=== PATIENT | female | born 1965 | race American Indian/Alaskan Native ===

== ENCOUNTER 2016-10-12 10:53 | Outpatient (CLI) | payer OTHER ==
--- NOTE | 2016-10-12 12:21 | Mammography Report ---
BILATERAL MAMMOGRAM with CAD: HISTORY: Cancer screening. FINDINGS: The breast tissue is heterogeneously dense, which could obscure detection of small masses (approximately 50%-75% glandular). No mass, distortion, suspicious calcification, or skin change is seen. IMPRESSION: Negative mammogram. There is no mammographic evidence of malignancy. RECOMMENDATION: Follow-up per ACS guidelines. BI-RADS CATEGORY: 1 = Negative ACR BI-RADS MAMMOGRAPHIC CODES: 0 = Needs additional imaging evaluation; 1 = Negative; 2 = Benign; 3 = Probably benign; 4 = Suspicious; 5 = Malignant; 6 = Known biopsy-proven malignancy COMMENT: 1. Dense breast tissue, i.e., adenosis, fibrocystic changes, etc., may obscure an underlying neoplasm. 2. Approximately 10% of cancers are not detected with mammography. 3. A negative mammography report should not delay biopsy if a clinically suspicious mass is present. COMMENT: Patient follow-up letters are generated in [employer].
== END 2016-10-12 10:54 | disposition home or self-care (01) ==
LOC: MAMMO 10:53
PROVIDERS: ATTEND Family Medicine
DX: Z12.31 Encounter for screening mammogram for malignant neoplasm of breast (principal)
CPT/HCPCS: 77067; G0202

== ENCOUNTER 2017-02-16 06:48 | Emergency (ER) | payer OTHER ==
[2017-02-16] MEDS ORDERED: DUONEB 0.5 MG-3 MG/3 ML SOLN IH ONE ×2 (07:12→07:13)
[2017-02-16 07:25] LABS: Basophils % (Auto) 0.5 % (0.0-1.8); Eosinophils % (Auto) 6.6 % (0.0-4.3); Hematocrit 44.6 % (30.3-42.9); Hemoglobin 14.5 gm/dl (10.1-14.3); Mean Corpuscular HGB Conc 33 % (30-34); Mean Corpuscular Hemoglobin 29 pg (28-32); Mean Corpuscular Volume 89 fl (79-97); Platelet Count 224 K/mm3 (140-440); Red Cell Distribution Width 13.2 % (13.2-15.2); White Blood Count 11.3 K/mm3 (4.5-11.0)
[2017-02-16 07:41] LABS: Anion Gap 15 mmol/L; BUN/Creatinine Ratio 13.33; Blood Urea Nitrogen 8 mg/dL (7-17); Calcium 8.9 mg/dL (8.4-10.2); Carbon Dioxide 27 mmol/L (22-30); Chloride 106.6 mmol/L (98-107); Glucose 97 mg/dL (65-100); Potassium 3.4 mmol/L (3.6-5.0); Sodium 145 mmol/L (137-145)
--- NOTE | 2017-02-16 08:00 | XRay Report ---
ROUTINE CHEST, TWO VIEWS: HISTORY: Shortness of breath. The trachea, heart, mediastinal contour, lung amor and bony thorax are unremarkable. No significant change since 06/29/16. IMPRESSION: Unremarkable chest x-ray.
[2017-02-16 08:21] VITALS: BP 143/74
[2017-02-16] MEDS ORDERED: PROVENTIL IH ONE (09:00)
--- NOTE | 2017-02-16 09:05 | Emergency Department Report ---
ED Shortness of Breath HPI - General Chief Complaint: Dyspnea/Respdistress Stated Complaint: MORGAN Time Seen by Provider: 02/16/17 08:46 Source: patient Mode of arrival: Ambulatory Limitations: No Limitations - History of Present Illness Initial Comments: 51-year-old female presents to the emergency department complaining of difficulty breathing. Patient states for the past one week she has been having difficulty breathing. She reports cough initially productive of chunky, white sputum. The sputum has changed to yellow/green/brown in color. She states she has been using her home nebulizer treatments without relief. She denies chest pain. She also denies fever. There are no other complaints. MD Complaint: shortness of breath, cough -: Gradual, week(s) (1) Pain Scale: 0 Consistency: constant Improves With: nothing Worsens With: nothing Known History Of: COPD Associated Symptoms: cough, sputum production - Related Data Previous Rx's Medication Instructions Recorded Last Taken Type Albuterol Sulfate [Ventolin HFA] 2 puff IH Q4H PRN #1 hfa.aer.ad 07/04/15 Rx Fluticasone [Flonase] 2 spray NS QDAY #1 bottle 07/04/15 08/08/15 Rx Loratadine [Claritin] 10 mg PO DAILY #30 tablet 07/04/15 08/14/15 Rx Colchicine [Colcrys] 0.6 mg PO BID PRN #20 tab 08/15/15 Unknown Rx ALBUTEROL Inhaler [ProAir HFA 2 puff IH QID PRN #2 inhalation 10/05/15 Unknown Rx Inhaler] Albuterol *Only Ed* [Proventil 2.5 mg IH Q4H PRN #1 box 10/05/15 Unknown Rx 0.5% NEBS] Budesonide [Pulmicort Respules] 0.25 mg IH Q12HR #1 box 10/05/15 Unknown Rx Ipratropium/Albuterol Sulfate 1 ampul IH Q4HR #1 box 10/05/15 Unknown Rx [Duoneb 0.5 mg-3 mg/3 ml Soln] Nebulizer/Compressor [Devilbiss 1 each MC DAILY #1 each 10/05/15 Unknown Rx Pulmoneb Lt Comp-Neb] predniSONE [Deltasone] 3 tab PO QDAY #15 tablet 02/16/17 Unknown Rx Allergies Allergy/AdvReac Type Severity Reaction Status Date / Time No Known Allergies Allergy Verified 06/29/16 12:05 ED Review of Systems ROS: Stated complaint: MORGAN Other details as noted in HPI Comment: All other systems reviewed and negative Respiratory: cough, shortness of breath, wheezing ED Past Medical Hx - Past Medical History Previous Medical History?: Yes Hx Congestive Heart Failure: No Hx Diabetes: No Hx Asthma: No Hx COPD: Yes Hx HIV: No Additional medical history: GOUT - Surgical History Past Surgical History?: Yes Additional Surgical History: breast biopsy, HYSTERECTOMY, Lt FOOT SURGERY X 2 - Family History Family history: no significant - Social History Smoking Status: Current Some Day Smoker Substance Use Type: None - Medications Home Medications: Home Medications Medication Instructions Recorded Confirmed Last Taken Type Albuterol Sulfate [Ventolin HFA] 2 puff IH Q4H PRN #1 hfa.aer.ad 07/04/1508/14/15 Rx Fluticasone [Flonase] 2 spray NS QDAY #1 bottle 07/04/15 10/04/15 08/08/15 Rx Loratadine [Claritin] 10 mg PO DAILY #30 tablet 07/04/15 10/04/15 08/14/15 Rx Colchicine [Colcrys] 0.6 mg PO BID PRN #20 tab 08/15/15 10/04/15 Unknown Rx ALBUTEROL Inhaler [ProAir HFA 2 puff IH QID PRN #2 inhalation 10/05/15 Unknown Rx Inhaler] Albuterol *Only Ed* [Proventil 2.5 mg IH Q4H PRN #1 box 10/05/15 Unknown Rx 0.5% NEBS] Budesonide [Pulmicort Respules] 0.25 mg IH Q12HR #1 box 10/05/15 Unknown Rx Ipratropium/Albuterol Sulfate 1 ampul IH Q4HR #1 box 10/05/15 Unknown Rx [Duoneb 0.5 mg-3 mg/3 ml Soln] Nebulizer/Compressor [Devilbiss 1 each MC DAILY #1 each 10/05/15 Unknown Rx Pulmoneb Lt Comp-Neb] predniSONE [Deltasone] 3 tab PO QDAY #15 tablet 02/16/17 Unknown Rx ED Physical Exam - General Limitations: No Limitations General appearance: alert, in no apparent distress - Head Head exam: Present: atraumatic, normocephalic - Eye Eye exam: Present: normal appearance, PERRL, EOMI - ENT ENT exam: Present: normal exam, normal orophraynx, mucous membranes moist - Neck Neck exam: Present: normal inspection, full ROM. Absent: tenderness - Respiratory Respiratory exam: Present: wheezes (bilateral posterior diffuse). Absent: respiratory distress - Cardiovascular Cardiovascular Exam: Present: regular rate, normal rhythm, normal heart sounds - GI/Abdominal GI/Abdominal exam: Present: soft, normal bowel sounds. Absent: distended, tenderness - Extremities Exam Extremities exam: Present: normal inspection, full ROM. Absent: tenderness - Back Exam Back exam: Present: normal inspection, full ROM. Absent: tenderness - Neurological Exam Neurological exam: Present: alert, oriented X3. Absent: motor sensory deficit - Skin Skin exam: Present: warm, dry, intact ED Course Vital Signs 02/16/17 02/16/17 02/16/17 06:48 07:17 08:09 Temperature 98.0 F Pulse Rate 78 Pulse Rate [ 80 Posterior Bilateral Throughout] Respiratory 22 21 Rate Respiratory 22 Rate [Posterior Bilateral Throughout] Blood Pressure Blood Pressure 157/88 [Right] O2 Sat by Pulse 99 Oximetry 02/16/17 02/16/17 02/16/17 08:10 08:11 08:12 Temperature Pulse Rate 73 73 Pulse Rate [ Posterior Bilateral Throughout] Respiratory 13 12 Rate Respiratory Rate [Posterior Bilateral Throughout] Blood Pressure 154/75 137/69 143/74 Blood Pressure [Right] O2 Sat by Pulse 97 99 97 Oximetry 02/16/17 02/16/17 02/16/17 08:14 08:16 08:18 Temperature Pulse Rate Pulse Rate [ Posterior Bilateral Throughout] Respiratory Rate Respiratory Rate [Posterior Bilateral Throughout] Blood Pressure 143/74 143/74 143/74 Blood Pressure [Right] O2 Sat by Pulse 98 97 98 Oximetry 02/16/17 02/16/17 02/16/17 08:20 08:22 08:24 Temperature Pulse Rate Pulse Rate [ Posterior Bilateral Throughout] Respiratory 19 Rate Respiratory Rate [Posterior Bilateral Throughout] Blood Pressure 143/74 143/74 143/74 Blood Pressure [Right] O2 Sat by Pulse 99 98 97 Oximetry 02/16/17 02/16/17 02/16/17 08:26 08:28 08:30 Temperature Pulse Rate Pulse Rate [ Posterior Bilateral Throughout] Respiratory Rate Respiratory Rate [Posterior Bilateral Throughout] Blood Pressure 143/74 143/74 143/74 Blood Pressure [Right] O2 Sat by Pulse 100 99 100 Oximetry 02/16/17 02/16/17 02/16/17 08:32 08:34 08:36 Temperature Pulse Rate Pulse Rate [ Posterior Bilateral Throughout] Respiratory Rate Respiratory Rate [Posterior Bilateral Throughout] Blood Pressure 143/74 143/74 143/74 Blood Pressure [Right] O2 Sat by Pulse 97 98 100 Oximetry 02/16/17 02/16/17 02/16/17 08:38 08:40 08:42 Temperature Pulse Rate Pulse Rate [ Posterior Bilateral Throughout] Respiratory Rate Respiratory Rate [Posterior Bilateral Throughout] Blood Pressure 143/74 143/74 143/74 Blood Pressure [Right] O2 Sat by Pulse 100 100 100 Oximetry 02/16/17 02/16/17 02/16/17 08:44 08:46 08:48 Temperature Pulse Rate Pulse Rate [ Posterior Bilateral Throughout] Respiratory Rate Respiratory Rate [Posterior Bilateral Throughout] Blood Pressure 143/74 143/74 143/74 Blood Pressure [Right] O2 Sat by Pulse 100 100 100 Oximetry 02/16/17 02/16/17 02/16/17 08:50 08:52 08:54 Temperature Pulse Rate Pulse Rate [ Posterior Bilateral Throughout] Respiratory Rate Respiratory Rate [Posterior Bilateral Throughout] Blood Pressure 143/74 143/74 143/74 Blood Pressure [Right] O2 Sat by Pulse 100 100 98 Oximetry 02/16/17 02/16/17 02/16/17 08:56 08:58 09:00 Temperature Pulse Rate Pulse Rate [ Posterior Bilateral Throughout] Respiratory Rate Respiratory Rate [Posterior Bilateral Throughout] Blood Pressure 143/74 143/74 143/74 Blood Pressure [Right] O2 Sat by Pulse 99 98 98 Oximetry 02/16/17 02/16/17 02/16/17 09:02 09:04 09:06 Temperature Pulse Rate Pulse Rate [ Posterior Bilateral Throughout] Respiratory Rate Respiratory Rate [Posterior Bilateral Throughout] Blood Pressure 143/74 143/74 143/74 Blood Pressure [Right] O2 Sat by Pulse 99 98 100 Oximetry 02/16/17 02/16/17 02/16/17 09:08 09:10 09:12 Temperature Pulse Rate Pulse Rate [ 72 Posterior Bilateral Throughout] Respiratory Rate Respiratory 22 Rate [Posterior Bilateral Throughout] Blood Pressure 143/74 143/74 143/74 Blood Pressure [Right] O2 Sat by Pulse 100 100 100 Oximetry 02/16/17 02/16/17 02/16/17 09:14 09:16 09:18 Temperature Pulse Rate Pulse Rate [ Posterior Bilateral Throughout] Respiratory Rate Respiratory Rate [Posterior Bilateral Throughout] Blood Pressure 143/74 143/74 143/74 Blood Pressure [Right] O2 Sat by Pulse 100 99 100 Oximetry 02/16/17 02/16/17 02/16/17 09:20 09:22 09:24 Temperature Pulse Rate Pulse Rate [ Posterior Bilateral Throughout] Respiratory Rate Respiratory Rate [Posterior Bilateral Throughout] Blood Pressure 143/74 143/74 143/74 Blood Pressure [Right] O2 Sat by Pulse 100 100 100 Oximetry 02/16/17 02/16/17 02/16/17 09:26 09:28 09:54 Temperature Pulse Rate Pulse Rate [ 76 Posterior Bilateral Throughout] Respiratory Rate Respiratory 20 Rate [Posterior Bilateral Throughout] Blood Pressure 143/74 143/74 Blood Pressure [Right] O2 Sat by Pulse 100 100 Oximetry ED Medical Decision Making - Lab Data Result diagrams: 02/16/17 07:12 02/16/17 07:09 - EKG Data -: EKG Interpreted by Nd EKG shows normal: sinus rhythm, axis, intervals, QRS complexes, ST-T waves Rate: normal - EKG Data When compared to previous EKG there are: previous EKG unavailable Interpretation: normal EKG - Radiology Data Radiology results: report reviewed Chest x-ray shows no acute cardiopulmonary abnormality. - Medical Decision Making Lab and imaging results reviewed and discussed with the patient. Patient reports feeling much better following medication. On reexamination, her lungs are clear to auscultation. Patient will be discharged home at this time. - Differential Diagnosis COPD exacerbation, pneumonia Critical care attestation.: If time is entered above; I have spent that time in minutes in the direct care of this critically ill patient, excluding procedure time. ED Disposition Clinical Impression: COPD with acute exacerbation Disposition: DISCHARGED TO HOME OR SELFCARE Is pt being admited?: No Condition: Stable Instructions: Chronic Obstructive Pulmonary Disease (ED) Prescriptions: predniSONE [Deltasone] 3 tab PO QDAY #15 tablet Referrals: PRIMARY CARE, [Primary Care Provider] - 3-5 Days Time of Disposition: 10:27
[2017-02-16] MEDS ORDERED: DELTASONE PO ONE (09:57)
== END 2017-02-16 10:33 | disposition home or self-care (01) ==
LOC: ED 06:48
DX: J44.1 Chronic obstructive pulmonary disease with (acute) exacerbation (principal); F17.200 Nicotine dependence, unspecified, uncomplicated; Z98.890 Other specified postprocedural states
CPT/HCPCS: 36415; 71020; 80048; 82140; 82805; 84484; 84703; 85025; 87040; 93005; 93010; 94640; 99284; J2930; J7512

== ENCOUNTER 2017-12-11 16:19 | Emergency (ER) | payer OTHER ==
[2017-12-11 16:30] VITALS: BP 135/52
--- NOTE | 2017-12-11 17:49 | Emergency Department Report ---
ED Psych HPI - General Chief Complaint: Anxiety Stated Complaint: MORGAN Time Seen by Provider: 12/11/17 17:31 Source: patient Mode of arrival: Ambulatory - History of Present Illness Initial Comments: Ms. Lockhart is a 52-year-old female with history of COPD and tobacco abuse. For the past 2 years she has had intermittent episodes of panic anxiety and depression. She states that her moods have been labile. Last night she felt panicked. She then began to cry. She had associated shortness of breath. Triggers tend to be life stressors. Spring time is the anniversary of her mother's test 2 years ago. Last time she had a similar attack her son was in during a court trauma. Recently she's had depression crying episodes. She's felt anxious. She states that using her prednisone helps her. She denies suicidal ideation. She stated that last summer she did have one time in which she thought she would harm to herself. She has not seen a therapist. She currently denies SI or HI. She is a former cocaine addict. She stopped using cocaine 5 years ago. She left [place] to [place] for a new lease on life. MD Complaint: feels depressed, other (anxious anxious) -: Gradual, year(s) (2) Associated Psychiatric Symptoms: depression, racing thoughts Quality: intermittent Associated Symptoms: shortness of breath - Related Data Previous Rx's Medication Instructions Recorded Last Taken Type Albuterol Sulfate [Ventolin HFA] 2 puff IH Q4H PRN #1 hfa.aer.ad 07/04/15 Rx Fluticasone [Flonase] 2 spray NS QDAY #1 bottle 07/04/15 08/08/15 Rx Loratadine [Claritin] 10 mg PO DAILY #30 tablet 07/04/15 08/14/15 Rx Colchicine [Colcrys] 0.6 mg PO BID PRN #20 tab 08/15/15 Unknown Rx ALBUTEROL Inhaler [ProAir HFA 2 puff IH QID PRN #2 inhalation 10/05/15 Unknown Rx Inhaler] Albuterol *Only Ed* [Proventil 2.5 mg IH Q4H PRN #1 box 10/05/15 Unknown Rx 0.5% NEBS] Budesonide [Pulmicort Respules] 0.25 mg IH Q12HR #1 box 10/05/15 Unknown Rx Ipratropium/Albuterol Sulfate 1 ampul IH Q4HR #1 box 10/05/15 Unknown Rx [DUONEB *Not for PRN Use*] Nebulizer and Compressor 1 each MC DAILY #1 each 10/05/15 Unknown Rx [Devilbiss Pulmoneb Lt Comp-Neb] predniSONE [Deltasone] 3 tab PO QDAY #15 tablet 02/16/17 Unknown Rx predniSONE [Deltasone] 3 tab PO QDAY 5 Days #15 tab 12/11/17 Unknown Rx Allergies Allergy/AdvReac Type Severity Reaction Status Date / Time No Known Allergies Allergy Verified 06/29/16 12:05 ED Review of Systems ROS: Stated complaint: MORGAN Other details as noted in HPI Comment: All other systems reviewed and negative Constitutional: denies: fever, malaise Respiratory: denies: cough Cardiovascular: denies: chest pain ED Past Medical Hx - Past Medical History Hx CVA: No Hx Heart Attack/AMI: No Hx Congestive Heart Failure: No Hx Diabetes: No Hx Asthma: No Hx COPD: Yes Hx HIV: No Additional medical history: GOUT - Surgical History Additional Surgical History: breast biopsy, HYSTERECTOMY, Lt FOOT SURGERY X 2 - Social History Smoking Status: Current Some Day Smoker Substance Use Type: None, Other (former cocaine addict,) - Medications Home Medications: Home Medications Medication Instructions Recorded Confirmed Last Taken Type Albuterol Sulfate [Ventolin HFA] 2 puff IH Q4H PRN #1 hfa.aer.ad 07/04/1508/14/15 Rx Fluticasone [Flonase] 2 spray NS QDAY #1 bottle 07/04/15 10/04/15 08/08/15 Rx Loratadine [Claritin] 10 mg PO DAILY #30 tablet 07/04/15 10/04/15 08/14/15 Rx Colchicine [Colcrys] 0.6 mg PO BID PRN #20 tab 08/15/15 10/04/15 Unknown Rx ALBUTEROL Inhaler [ProAir HFA 2 puff IH QID PRN #2 inhalation 10/05/15 Unknown Rx Inhaler] Albuterol *Only Ed* [Proventil 2.5 mg IH Q4H PRN #1 box 10/05/15 Unknown Rx 0.5% NEBS] Budesonide [Pulmicort Respules] 0.25 mg IH Q12HR #1 box 10/05/15 Unknown Rx Ipratropium/Albuterol Sulfate 1 ampul IH Q4HR #1 box 10/05/15 Unknown Rx [DUONEB *Not for PRN Use*] Nebulizer and Compressor 1 each MC DAILY #1 each 10/05/15 Unknown Rx [Devilbiss Pulmoneb Lt Comp-Neb] predniSONE [Deltasone] 3 tab PO QDAY #15 tablet 02/16/17 Unknown Rx predniSONE [Deltasone] 3 tab PO QDAY 5 Days #15 tab 12/11/17 Unknown Rx ED Physical Exam - General Limitations: No Limitations General appearance: alert, in no apparent distress - Head Head exam: Present: atraumatic, normocephalic - Eye Eye exam: Present: normal appearance - ENT ENT exam: Present: mucous membranes moist - Neck Neck exam: Present: normal inspection - Respiratory Respiratory exam: Present: normal lung sounds bilaterally. Absent: respiratory distress, wheezes, rales, rhonchi - Cardiovascular Cardiovascular Exam: Present: regular rate, normal rhythm. Absent: systolic murmur, diastolic murmur, rubs, gallop - GI/Abdominal GI/Abdominal exam: Present: soft, normal bowel sounds. Absent: distended, tenderness, guarding, rebound - Extremities Exam Extremities exam: Present: normal inspection - Back Exam Back exam: Present: normal inspection - Neurological Exam Neurological exam: Present: alert, oriented X3 - Psychiatric Psychiatric exam: Present: normal affect, normal mood, other (calm cooperative insightful) - Skin Skin exam: Present: warm, dry, intact, normal color. Absent: rash ED Course Vital Signs 12/11/17 16:23 Temperature 97.7 F Pulse Rate 80 Respiratory 18 Rate Blood Pressure 135/52 O2 Sat by Pulse 98 Oximetry ED Medical Decision Making - Medical Decision Making Ms. Lockhart presents with anxiety and depression over the past 2 years. This time of year is the two-year anniversary of her mother's . She really appreciated the time to talk about her feelings. She has successfully maintained her job and home. She does admit that she had trouble coping alone. She does not have friends or family in the area. Her friends or family are in [place]. She has managed to stay away from drugs. She currently denies SI or HI. She desires prednisone to take as needed for COPD exacerbations. I have referred her to mental health clinics. I strongly advised her to obtain psychotherapy. rx: prednisone Critical care attestation.: If time is entered above; I have spent that time in minutes in the direct care of this critically ill patient, excluding procedure time. ED Disposition Clinical Impression: Anxiety and depression, COPD (chronic obstructive pulmonary disease) Disposition: TO HOME OR SELFCARE Is pt being admited?: No Does the pt Need Aspirin: No Condition: Stable Instructions: Anxiety (ED), Depression (ED) Prescriptions: predniSONE [Deltasone] 3 tab PO QDAY 5 Days #15 tab Referrals: [facility] [Outside] - 3-5 Days [facility] [Outside] - 3-5 Days [facility] [Outside] - 3-5 Days Time of Disposition: 17:54
== END 2017-12-11 18:22 | disposition home or self-care (01) ==
LOC: ED 16:19
DX: F41.9 Anxiety disorder, unspecified (principal); F32.9 Major depressive disorder, single episode, unspecified; J44.9 Chronic obstructive pulmonary disease, unspecified; M10.9 Gout, unspecified; F17.200 Nicotine dependence, unspecified, uncomplicated; Z90.710 Acquired absence of both cervix and uterus
CPT/HCPCS: 93005; 93010; 99283

== ENCOUNTER 2018-06-17 11:04 | Emergency (ER) | payer OTHER ==
[2018-06-17] MEDS ORDERED: SOLU-Medrol IM ONE (11:48)
[2018-06-17] MEDS ORDERED: DUONEB *Not for PRN Use IH ONE (11:49)
--- NOTE | 2018-06-17 12:17 | Emergency Department Report ---
Minor Respiratory - HPI Chief Complaint: Dyspnea/Respdistress Stated Complaint: MORGAN Time Seen by Provider: 06/17/18 11:44 Duration: 3 Days Pain Location: Chest Severity: mild Minor Respiratory: Yes Able to Tolerate Fluids, Yes Cough, Yes Shortness of Breath, No Rhinorrhea, No Sore Throat, No Ear Pain, No Sick Contacts, No Hemoptysis, No Chest Pain, No Fever Other History: NO PURULENT SPUTUM. NOT TAKING ALL MEDS DUE TO COST ED Review of Systems ROS: Stated complaint: MORGAN Other details as noted in HPI Comment: Unobtainable due to pts medical conditions Constitutional: denies: fever Eyes: denies: eye pain ENT: denies: ear pain, throat pain, dental pain, hearing loss Respiratory: cough, shortness of breath, wheezing. denies: orthopnea Cardiovascular: dyspnea on exertion. denies: chest pain, palpitations, orthopnea Endocrine: no symptoms reported Gastrointestinal: denies: abdominal pain, nausea, vomiting Genitourinary: denies: urgency, dysuria Musculoskeletal: denies: back pain Skin: denies: rash, lesions Neurological: denies: headache, weakness Psychiatric: denies: anxiety, depression Hematological/Lymphatic: denies: easy bleeding ED Past Medical Hx - Past Medical History Hx CVA: No Hx Heart Attack/AMI: No Hx Congestive Heart Failure: No Hx Diabetes: No Hx Asthma: No Hx COPD: Yes Hx HIV: No Additional medical history: GOUT - Surgical History Additional Surgical History: breast biopsy, HYSTERECTOMY, Lt FOOT SURGERY X 2 - Social History Smoking Status: Current Every Day Smoker Substance Use Type: None - Medications Home Medications: Home Medications Medication Instructions Recorded Confirmed Last Taken Type Albuterol Sulfate [Ventolin HFA] 2 puff IH Q4H PRN #1 hfa.aer.ad 07/04/1508/14/15 Rx Fluticasone [Flonase] 2 spray NS QDAY #1 bottle 07/04/15 10/04/15 08/08/15 Rx Loratadine [Claritin] 10 mg PO DAILY #30 tablet 07/04/15 10/04/15 08/14/15 Rx Colchicine [Colcrys] 0.6 mg PO BID PRN #20 tab 08/15/15 10/04/15 Unknown Rx ALBUTEROL Inhaler (OR & NICU) 2 puff IH QID PRN #2 inhalation 10/05/15 Unknown Rx [ProAir HFA Inhaler] Budesonide [Pulmicort Respules] 0.25 mg IH Q12HR #1 box 10/05/15 Unknown Rx Ipratropium/Albuterol Sulfate 1 ampul IH Q4HR #1 box 10/05/15 Unknown Rx [DUONEB *Not for PRN Use*] Nebulizer and Compressor 1 each MC DAILY #1 each 10/05/15 Unknown Rx [Devilbiss Pulmoneb Lt Comp-Neb] Amoxicillin 500 mg PO BID #20 capsule 06/17/18 Unknown Rx Fluticasone [Flonase] 1 spray NS QDAY #1 bottle 06/17/18 Unknown Rx predniSONE [Deltasone] 50 mg PO QDAY #5 tab 06/17/18 Unknown Rx Minor Respiratory Exam - Exam General: Vital signs noted. No distress. Alert and acting appropriately. HEENT: Yes Moist Mucous Membranes, No Pharyngeal Erythema, No Pharyngeal Exudates, No Rhinorrhea, No Conjuctival Injection, No Frontal Tenderness, No Maxillary Tenderness Ear: Neither TM Bulge, Neither TM Erythema, Neither EAC Pain, Neither EAC Discharge Neck: Yes Supple, No Adenopathy Lungs: Yes Wheezes, Yes Cough, No Good Air Exchange, No Ronchi, No Stridor, No Labored Respirations, No Retractions, No Use of Accessory Muscles, No Other Abnormal Lung Sounds Heart: Yes Regular, No Murmur Abdomen: Yes Normal Bowel Sounds, No Tenderness, No Peritoneal Signs Skin: No Rash, No Edema Neurologic: Alert and oriented, no deficits. Musculoskeletal: Unremarkable. ED Course Vital Signs 06/17/18 11:09 Temperature 98 F Pulse Rate 90 Respiratory 20 Rate Blood Pressure 160/61 O2 Sat by Pulse 96 Oximetry - Reevaluation(s) Reevaluation #1: 06/17/18 12:49 REEVAL P TREATMENT IMPROVED EQUAL BREATHSOUND; DEC WHEEZING AMBULATORY WO COMPLAINT GOOD RX CARD AND FOLLOW UP FOR DC ED Medical Decision Making - Radiology Data Radiology results: report reviewed, image reviewed - Medical Decision Making NO FEVER NO PURULENT SPUTUM XR WO CONSOLIDATION AMBULATORY TAKING PO NON ADH W MEDS IMPROVED W RT - Differential Diagnosis COPD AE W OR WO INFECTION Critical care attestation.: If time is entered above; I have spent that time in minutes in the direct care of this critically ill patient, excluding procedure time. ED Disposition Clinical Impression: COPD with acute exacerbation, Emphysema lung, URTI (acute upper respiratory infection), Non-adherence to medical treatment Disposition: DC-01 TO HOME OR SELFCARE Is pt being admited?: No Does the pt Need Aspirin: No Condition: Stable Instructions: Chronic Obstructive Pulmonary Disease (ED) Additional Instructions: FOLLOW UP WITH PCP REFERRAL GIVEN HERE MEDS ORDERED HYDRATE WELL ACTIVITY TOLERATED AVOID TRIGGERS Prescriptions: Amoxicillin 500 mg PO BID #20 capsule Fluticasone [Flonase] 1 spray NS QDAY #1 bottle predniSONE [Deltasone] 50 mg PO QDAY #5 tab Referrals: PRIMARY CARE, [Primary Care Provider] - 3-5 Days ROSANGELA ARTEAGA MD [Staff Physician] - 3-5 Days Time of Disposition: 12:14
--- NOTE | 2018-06-17 12:25 | XRay Report ---
ROUTINE CHEST, TWO VIEWS: HISTORY: Dyspnea. Compared to 02/16/17. Mild underlying emphysematous changes are suspected in the upper lobes. Minor focal scarring in the lateral right upper lobe is noted and unchanged. No evidence for pneumonia, pleural fluid or pneumothorax. Heart and mediastinal structures are within normal limits the bony structures are intact IMPRESSION: No acute process. Mild emphysematous changes are suspected.
[2018-06-17 13:08] VITALS: BP 168/77
== END 2018-06-17 13:09 | disposition home or self-care (01) ==
LOC: ED 11:04
DX: J44.1 Chronic obstructive pulmonary disease with (acute) exacerbation (principal); J06.9 Acute upper respiratory infection, unspecified; F17.200 Nicotine dependence, unspecified, uncomplicated; Z90.710 Acquired absence of both cervix and uterus
CPT/HCPCS: 71046; 94640; 96372; 99283; J2930